=== PATIENT | male | born 1970 | race Two or more races ===

== ENCOUNTER 2019-12-08 05:00 | Day surgery (SDC) | payer OTHER ==
[~2019-12-08 05:00] MED LIST: FENOFIBRATE150 MG PO; METFORMIN HCL500 M2 PO; SYNTHROID75 MCG PO
== END 2019-12-08 15:55 | disposition home or self-care (01) ==
LOC: CIR.AMB 05:00
PROVIDERS: ATTEND Specialist
DX: D17.22 Benign lipomatous neoplasm of skin and subcutaneous tissue of left arm (principal); D17.23 Benign lipomatous neoplasm of skin and subcutaneous tissue of right leg; Z20.828 Contact with and (suspected) exposure to other viral communicable diseases